=== PATIENT | female | born 1950 | race Caucasian/White ===

== ENCOUNTER → 2019-11-11 | Outpatient (CLI) | payer MEDICARE, OTHER | END | disposition home or self-care (01) | LOC: LAB EV 14:48 → LAB SHORT 14:48 | DX: R30.0 Dysuria (principal); R30.9 Painful micturition, unspecified | CPT/HCPCS: 87077; 87086; 87186 ==

== ENCOUNTER 2021-12-05 06:38 | Day surgery (SDC) | payer MEDICARE, OTHER ==
[~2021-12-05] VITALS: Ht 165.1 cm; Wt 63.8 kg
--- NOTE | 2021-12-05 06:56 | NUR ---
History, Chart, Medications and Allergies reviewed before start of procedure. Patient confirms NPO status and agrees with scheduled surgery. Reports taking all of her colon prep with clear results. Patient States Post-Procedure ride home has been arranged with her , Brayan.
--- NOTE | 2021-12-05 08:03 | NUR ---
12/05/21 0803 Lori Cole HISTORY,CHART, MEDICATIONS AND ALLERGIES REVIEWED BEFORE START OF PROCEDURE. PATIENT CONFIRMS NPO STATUS AND AGREES WITH SCHEDULED PROCEDURE. 3-LEAD EKG REVIEWED WITH PHYSICIAN PRIOR TO START OF PROCEDURE. MONITOR INTACT WITH CONTINUOUS PULSE OXIMETRY AND INTERMITTENT BP. SUPPLEMENTAL O2 TO BE TITRATED THROUGHOUT PROCEDURE TO MAINTAIN O2 SATURATION ABOVE 90%. PATIENT DETERMINED TO BE ASA APPROPRIATE FOR MODERATE SEDATION PRIOR TO START OF PROCEDURE BY DR. ALSTON.
--- NOTE | 2021-12-05 10:01 | NUR ---
Patient up to Ambulate independently. Gait steady. Discharge instructions reviewed with patient. Patient verbalizes understanding. Copy given to patient to take home. Discharged via wheelchair to private car for ride home.
== END 2021-12-05 22:55 | disposition home or self-care (01) ==
LOC: ORSCMMR 06:38 → ORD 08:00 → ORSCMMR 22:55
PROVIDERS: Internal Medicine Gastroenterology
PROC: 0DBN8ZX Excision of Sigmoid Colon, Via Natural or Artificial Opening Endoscopic, Diagnostic (ICD-10-PCS; principal; 2021-12-05 08:00)
PROC: 0DBL8ZX Excision of Transverse Colon, Via Natural or Artificial Opening Endoscopic, Diagnostic (ICD-10-PCS; principal; 2021-12-05 08:00)
DX: R19.5 Other fecal abnormalities (principal); D12.3 Benign neoplasm of transverse colon; K63.5 Polyp of colon
CPT/HCPCS: 88305; J2250; J2310; J3010; J7120

== ENCOUNTER → 2023-04-23 | Outpatient (CLI) | payer MEDICARE, OTHER | LOC: LAB SHORT 08:27 → PLD 08:27 | DX: L57.0 Actinic keratosis (principal); D18.01 Hemangioma of skin and subcutaneous tissue | CPT/HCPCS: 88305 ==

== ENCOUNTER 2024-12-10 09:08 | Day surgery (SDC) | payer MEDICARE, OTHER ==
[~2024-12-10] VITALS: Ht 165.1 cm; Wt 61.5 kg
[~2024-12-10 09:08] MED LIST: Lactated Ringer's 1,000 ML IV ONE; propofoL 50 ML IV ONE
[2024-12-10] MEDS ORDERED: ESTRADIOL42.5 GM (09:30)
[2024-12-10] MEDS ORDERED: Lactated Ringer's 1,000 ML IV ONE (10:09)
[2024-12-10 11:55] VITALS: BP 109/67
== END 2024-12-10 11:45 | disposition home or self-care (01) ==
LOC: ORSCSDS 09:08
PROVIDERS: Internal Medicine Gastroenterology
PROC: 0DBK8ZX Excision of Ascending Colon, Via Natural or Artificial Opening Endoscopic, Diagnostic (ICD-10-PCS; principal; 2024-12-10 10:30)
DX: Z12.11 Encounter for screening for malignant neoplasm of colon (principal); R19.5 Other fecal abnormalities; D12.4 Benign neoplasm of descending colon; Z79.899 Other long term (current) drug therapy
CPT/HCPCS: 88305; J2704; J7120